=== PATIENT | male | born 1945 | race Caucasian/White ===

== ENCOUNTER 2016-10-14 11:53 | Inpatient (IN) | payer MEDICARE ==
[2016-10-14 12:35] LABS: BASOPHIL 0.3 % (0-2); EOSINOPHIL 1.3 % (0-7); HCT 33.4 % (42.0-52.0); HGB 11.7 g/dl (13.2-18.0); LYMPHOCYTE 15.1 % (15-48); MCH 28.9 pg (25.0-31.0); MCV 82.5 fL (78.0-100.0); MONOCYTE 7.2 % (0-12); MPV 11.4 fL (6.0-9.5); NEUTROPHIL 76.1 % (41-80); PLT 177 K/uL (150-400); RBC 4.05 M/uL (4.70-6.00); RDW 13.9 % (11.5-14.0); WBC 6.2 K/uL (4.0-10.5)
[2016-10-14 12:40] LABS: INR 0.97 (0.9-1.2); PROTHROMBIN TIME 12.5 SECONDS (11.7-14.0); PTT 27.1 SECONDS (23.2-31.4)
[2016-10-14 12:49] LABS: TROPONIN T 0.07 ng/mL
[2016-10-14 12:51] LABS: CKMB 6.89 ng/mL (0.97-4.94)
[2016-10-14 13:25] LABS: BILIRUBIN - TOTAL 0.5 mg/dL (0.1-1.0); CREATININE 6.6 mg/dL (0.7-1.2); GLOBULIN (CALCULATION) 2.2 g/dL (2.2-4.2); MAGNESIUM 1.96 mg/dL (1.40-2.10); POTASSIUM 3.6 mmol/L (3.5-5.1); TOTAL PROTEIN 6.2 g/dL (6.4-8.3)
[2016-10-14 22:54] LABS: CKMB 4.76 ng/mL (0.97-4.94); TROPONIN T 0.092 ng/mL
[2016-10-15 01:15] LABS: BILIRUBIN NEGATIVE (NEGATIVE); BLOOD 1+ Ery/uL (NEGATIVE); CLARITY CLEAR (CLEAR); COLOR YELLOW (YELLOW); GLUCOSE (U) 3+ mg/dL (NORMAL); KETONE (U) NEGATIVE (NEGATIVE); LEUKOCYTES NEGATIVE Leu/uL (NEGATIVE); NITRITE NEGATIVE (NEGATIVE); PROTEIN 3+ mg/dL (NEGATIVE); SPECIFIC GRAVITY 1.015 (1.001-1.030); UROBILINOGEN 0.2 mg/dL (0.2-1.0); pH 6.5 (5.0-9.0)
[2016-10-15 06:34] LABS: HCT 32.3 % (42.0-52.0); MCH 28.3 pg (25.0-31.0); MCHC 34.1 g/dL (32.0-36.0); MPV 11.1 fL (6.0-9.5); RBC 3.89 M/uL (4.70-6.00); WBC 7.4 K/uL (4.0-10.5)
[2016-10-15 06:53] LABS: CREATININE 4.5 mg/dL (0.7-1.2); POTASSIUM 3.5 mmol/L (3.5-5.1)
[2016-10-15 06:55] LABS: CKMB 4.39 ng/mL (0.97-4.94); TROPONIN T 0.083 ng/mL
[2016-10-15 10:58] LABS: CKMB 4.04 ng/mL (0.97-4.94); TROPONIN T 0.076 ng/mL
[2016-10-16 06:11] LABS: HCT 32.3 % (42.0-52.0); HGB 10.8 g/dl (13.2-18.0); MCH 28.1 pg (25.0-31.0); MCHC 33.4 g/dL (32.0-36.0); MCV 83.9 fL (78.0-100.0); MPV 11.3 fL (6.0-9.5); RBC 3.85 M/uL (4.70-6.00); WBC 6.3 K/uL (4.0-10.5)
[2016-10-16 06:29] LABS: CREATININE 5.9 mg/dL (0.7-1.2); POTASSIUM 3.5 mmol/L (3.5-5.1)
[2016-10-16] MEDS ORDERED: NITROGLYCERIN0.4 MG PO (13:13)
[2016-10-16] MEDS ORDERED: ASPIRIN CHEWABL81 MG PO (13:15)
[2016-10-16] MEDS ORDERED: AMLODIPINE BESY10 MG PO (13:15)
[2016-10-16] MEDS ORDERED: LINZESS145 MCG PO (13:16)
[2016-10-16] MEDS ORDERED: COZAAR100 MG PO (13:16)
[2016-10-16] MEDS ORDERED: PROTONIX 40MG T40 MG PO (13:16)
[2016-10-16] MEDS ORDERED: IMDUR 30MG TABL30 MG PO (13:17)
[2016-10-16] MEDS ORDERED: NOVOLOG MI100 UNIT/3 SQ ×2 (13:17)
[2016-10-16] MEDS ORDERED: REGLAN10 MG PO (13:17)
[2016-10-16] MEDS ORDERED: HYDRALAZINE25 MG PO (13:18)
[2016-10-16] MEDS ORDERED: TOPROL XL 50 MG50 MG PO (13:18)
--- NOTE | 2016-10-16 14:49 | NUR ---
REVIEWED DISCHARGE INSTRUCTIONS, APPT, MEDICATIONS WITH PT INFORMED PT HIS B/P WAS ELEVATED - HE STATES HE WILL TAKE HIS CARDIAC MEDICATIONS AT HOME HE REFUSED HIS MEDICATION HERE
== END 2016-10-16 14:45 | disposition home or self-care (01) | DRG 291 ==
LOC: FER 11:53 → FMS 16:30
PROVIDERS: Emergency Medicine; Internal Medicine Nephrology; ADMIT Internal Medicine Cardiovascular Disease
PROC: 5A1D00Z (ICD-10-PCS; principal; 2016-10-16)
DX: I13.2 Hypertensive heart and chronic kidney disease with heart failure and with stage 5 chronic kidney disease, or end stage renal disease (principal); N18.6 End stage renal disease; E11.22 Type 2 diabetes mellitus with diabetic chronic kidney disease; I50.30 Unspecified diastolic (congestive) heart failure; I16.0 Hypertensive urgency; R07.9 Chest pain, unspecified; E78.5 Hyperlipidemia, unspecified; Z85.038 Personal history of other malignant neoplasm of large intestine; Z99.2 Dependence on renal dialysis; I25.10 Atherosclerotic heart disease of native coronary artery without angina pectoris; I25.2 Old myocardial infarction; Z95.5 Presence of coronary angioplasty implant and graft; K21.9 Gastro-esophageal reflux disease without esophagitis; Z87.442 Personal history of urinary calculi; K58.9 Irritable bowel syndrome, unspecified; Z87.891 Personal history of nicotine dependence; Z79.82 Long term (current) use of aspirin; Z79.899 Other long term (current) drug therapy; R07.89 Other chest pain
CPT/HCPCS: 36415; 71010; 80048; 80053; 80061; 81003; 82550; 82553; 82962; 83735; 83874; 83880; 84484; 85025; 85610; 85730; 93005; J1644